=== PATIENT | female | born 1990 | race Caucasian/White ===

== ENCOUNTER → 2024-05-29 11:43 | Outpatient (BNVA) | payer MEDICAID, SELFPAY | PROVIDERS: PCP Family Medicine; Visit Provider Family Medicine | DX: R09.02 Hypoxemia (principal) | CPT/HCPCS: 80053; 80061; 82306; 82607; 83036; 83735; 84439; 84443; 85025 ==

== ENCOUNTER → 2024-08-26 15:02 | Outpatient (BNVA) | payer MEDICAID, SELFPAY | PROVIDERS: PCP Nurse Practitioner; Visit Provider Nurse Practitioner | DX: E66.9 Obesity, unspecified (principal) | CPT/HCPCS: 82533 ==

== ENCOUNTER → 2024-12-10 11:03 | Outpatient (BNVA) | payer MEDICAID, SELFPAY | PROVIDERS: PCP Nurse Practitioner; Visit Provider Nurse Practitioner | DX: R06.00 Dyspnea, unspecified (principal); R09.02 Hypoxemia | CPT/HCPCS: 80053; 80061; 83880; 85025 ==

== ENCOUNTER → 2025-01-09 11:11 | Outpatient (BNVA) | payer MEDICAID, SELFPAY | PROVIDERS: PCP Nurse Practitioner; Visit Provider Nurse Practitioner | DX: R09.02 Hypoxemia (principal) | CPT/HCPCS: 80053; 85025 ==

== ENCOUNTER → 2025-03-19 11:19 | Outpatient (BNVA) | payer MEDICAID, SELFPAY | PROVIDERS: PCP Nurse Practitioner; Visit Provider Nurse Practitioner | DX: L65.9 Nonscarring hair loss, unspecified (principal) | CPT/HCPCS: 82306; 84443 ==